=== PATIENT | male | born 1980 | race African-American/Black ===

== ENCOUNTER 2022-04-29 22:56 | Emergency (ER) | payer OTHER ==
[~2022-04-29] VITALS: Ht 170.2 cm; Wt 100.0 kg
[2022-04-29 23:28] VITALS: BP 159/85
== END 2022-04-30 04:24 | disposition left against medical advice (07) ==
LOC: ER 22:56
DX: Z53.21 Procedure and treatment not carried out due to patient leaving prior to being seen by health care provider (principal)